=== PATIENT | female | born 1940 | race Caucasian/White ===

== ENCOUNTER → 2017-01-19 | Outpatient (REF) | payer MEDICARE, MEDICAID ==
[2017-01-19 15:55] LABS: ALBUMIN/GLOBULIN RATIO 1.25 (1.00-1.93); ALKALINE PHOSPHATASE 139 U/L (45-117); ALT/SGPT 19 U/L (12-78); ANION GAP 10 MEQ/L (8-16); AST/SGOT 16 U/L (15-37); BILIRUBIN,TOTAL 0.5 MG/DL (0.2-1.0); BLOOD UREA NITROGEN 14 MG/DL (7-18); CARBON DIOXIDE LEVEL 30 MEQ/L (21-32); CHLORIDE LEVEL 89 MEQ/L (98-107); CHOLESTEROL LEVEL 170 MG/DL (<200); CREATININE FOR GFR 0.83 MG/DL (0.55-1.02); GLOMERULAR FILTRATION RATE > 60.0 (>39); GLUCOSE, FASTING 98 MG/DL (83-110); POTASSIUM SERUM 4.4 MEQ/L (3.5-5.1); SODIUM LEVEL 129 MEQ/L (136-145); TOTAL PROTEIN 7.2 GM/DL (6.4-8.2); TRIGLYCERIDES LEVEL 131 MG/DL (<150)
== END ==
LOC: M SFHCLACO 08:04
PROVIDERS: ATTEND Physician Assistant
DX: I10 Essential (primary) hypertension (principal); E78.2 Mixed hyperlipidemia

== ENCOUNTER → 2017-08-10 | Outpatient (REF) | payer MEDICARE, MEDICAID | LOC: M SFHCLACO 09:01 | DX: I10 Essential (primary) hypertension (principal); E78.2 Mixed hyperlipidemia; Z53.8 Procedure and treatment not carried out for other reasons ==

== ENCOUNTER → 2018-02-10 | Outpatient (REF) | payer MEDICARE, MEDICAID ==
[2018-02-10 15:08] LABS: ALBUMIN 3.7 GM/DL (3.2-5.2); ALBUMIN/GLOBULIN RATIO 1.09 (1.00-1.93); ALKALINE PHOSPHATASE 163 U/L (45-117); ALT/SGPT 26 U/L (12-78); ANION GAP 10 MEQ/L (8-16); AST/SGOT 25 U/L (7-37); BILIRUBIN,TOTAL 0.4 MG/DL (0.2-1.0); BLOOD UREA NITROGEN 10 MG/DL (7-18); CALCIUM LEVEL 8.8 MG/DL (8.8-10.2); CARBON DIOXIDE LEVEL 31 MEQ/L (21-32); CHLORIDE LEVEL 92 MEQ/L (98-107); CHOLESTEROL LEVEL 152 MG/DL (<200); CHOLESTEROL RISK RATIO 2.338 (<5); CREATININE FOR GFR 0.86 MG/DL (0.55-1.30); GLOMERULAR FILTRATION RATE > 60.0 (>39); GLUCOSE, FASTING 94 MG/DL (70-100); HDL CHOLESTEROL 65 MG/DL (>40); LDL CHOLESTEROL 64.2 MG/DL (<100); NON-HDL-C 87 MG/DL; POTASSIUM SERUM 4.3 MEQ/L (3.5-5.1); SODIUM LEVEL 133 MEQ/L (136-145); TOTAL PROTEIN 7.1 GM/DL (6.4-8.2); TRIGLYCERIDES LEVEL 114 MG/DL (<150)
== END ==
LOC: M SFHCLACO 08:00
DX: E78.2 Mixed hyperlipidemia (principal); I10 Essential (primary) hypertension
CPT/HCPCS: 80053

== ENCOUNTER 2019-07-30 06:38 | Inpatient (IN) | payer MEDICARE, MEDICAID ==
[~2019-07-30] VITALS: Ht 157.5 cm; Wt 57.7 kg
[2019-07-30] VITALS (105 sets, daily range): BP systolic 47–146; BP diastolic 22–79
[2019-07-30] MEDS ORDERED: SIMV40TA20 PO (07:02)
[2019-07-30] MEDS ORDERED: ZETI10TA16 PO (07:02)
[2019-07-30] MEDS ORDERED: CART300C PO (07:02)
[2019-07-30] MEDS ORDERED: CALCTAB89 PO (07:02)
[2019-07-30] MEDS ORDERED: METO1TAB32 PO (07:02)
[2019-07-30] MEDS ORDERED: ASPI81TA85 PO (07:02)
[2019-07-30] MEDS ORDERED: ENAL20TA PO (07:02)
[2019-07-30] MEDS ORDERED: HYDR25TAB PO (07:02)
[2019-07-30] MEDS ORDERED: NS 1,000 ML IV ONE (07:15)
[2019-07-30 07:41] LABS: HEMATOCRIT 51.6 % (36.0-47.0); HEMOGLOBIN 16.8 g/dl (12.0-15.5); MEAN CORPUSCULAR HEMOGLOBIN 29.3 pg (27.0-33.0); MEAN CORPUSCULAR HGB CONC 32.6 g/dl (32.0-36.5); MEAN CORPUSCULAR VOLUME 89.9 fl (80.0-96.0); PLATELET COUNT, AUTOMATED 238 10^3/uL (150-450); RED BLOOD COUNT 5.74 10^6/uL (4.00-5.40); WHITE BLOOD COUNT 17.8 10^3/uL (4.0-10.0)
[2019-07-30 08:01] LABS: LYMPHOCYTES 9 % (16-44); MONOCYTES 5 % (0-5); NEUTROPHILS 86 % (28-66); PLATELET ESTIMATE NORMAL (NORMAL)
[2019-07-30 08:02] LABS: TOXIC VACUOLATION 1+
[2019-07-30 08:04] LABS: CRENATED RBC 1+
[2019-07-30 08:13] LABS: BILIRUBIN, URINE MANUAL 1+ (NEGATIVE); KETONE, URINE MANUAL NEGATIVE (NEGATIVE); UROBILINOGEN, URINE MANUAL NORMAL (NORMAL)
[2019-07-30 08:14] LABS: GLUCOSE, URINE (UA) MANUAL NEGATIVE (NEGATIVE)
[2019-07-30 08:26] LABS: CALCIUM LEVEL 8.4 MG/DL (8.8-10.2); CK-MB VALUE MASS 11.3 NG/ML (<3.6); CREATININE FOR GFR 2.96 MG/DL (0.55-1.30); GLOMERULAR FILTRATION RATE 16.2 (>32); MB/CK RELATIVE INDEX 2.29 (< OR =4); TROPONIN I 0.03 NG/ML (< 0.10)
[2019-07-30 08:38] LABS: BACTERIA, URINE LARGE AMOUNT; SQUAMOUS EPITHELIAL CELL URINE NONE SEEN /hpf (SMALL AMT); TRANSITIONAL EPI CELLS, URINE SMALL AMOUNT /hpf
[2019-07-30 08:39] LABS: AMORPHOUS SEDIMENT, URINE SMALL AMOUNT (NEGATIVE); HYALINE CAST, URINE NONE SEEN /lpf (0-1)
[2019-07-30] MEDS ORDERED: CEFEPIME HCL 2 GM in D5W MINI-BAG PLUS 50 ML IV ONE (08:45)
[2019-07-30] MEDS ORDERED: NS 1,730 ML in IV 1 EA IV ONE (08:45)
[2019-07-30 08:50] LABS: VENOUS BASE EXCESS -14.3 (-2.0-2.0); VENOUS HCO3 12.4 MEQ/L (23.0-27.0); VENOUS O2 SATURATION 90.4 % (60.0-80.0); VENOUS PARTIAL PRESSURE CO2 32.2 mmHg (38.0-50.0); VENOUS PARTIAL PRESSURE O2 66.4 mmHg (30.0-50.0); VENOUS PH 7.203 UNITS (7.330-7.430); VENOUS STANDARD HCO3 13.7 MEQ/L; VENOUS TOTAL CO2 13.4 MEQ/L (24.0-28.0)
[2019-07-30] MEDS ORDERED: ARIC1TAB PO (08:55)
[2019-07-30] MEDS ORDERED: DONEPEZIL 5 MG TAB PO SCH (09:00)
[2019-07-30] MEDS ORDERED: LIDOCAINE 5% (LIDODERM) PATCH TD SCH (09:00)
[2019-07-30] MEDS ORDERED: ASPIRIN 81 MG ENTERIC TAB PO SCH (09:00)
[2019-07-30] MEDS ORDERED: PANTOPRAZOLE 40MG INJ (PROTONIX) (C9113) IV SCH (09:00)
[2019-07-30 09:06] LABS: C REACTIVE PROTEIN QUANTITATIV 15.1 MG/DL (0.00-0.30)
[2019-07-30 09:12] LABS: INFLUENZA A AMPLIFICATION NEGATIVE (NEGATIVE); INFLUENZA B AMPLIFICATION NEGATIVE (NEGATIVE)
[2019-07-30 09:18] LABS: INR 1.17; PROTHROMBIN TIME 14.6 SECONDS (11.8-14.0)
[2019-07-30 09:19] LABS: PARTIAL THROMBOPLASTIN TIME 30.4 SECONDS (25.0-38.4)
[2019-07-30] MEDS ORDERED: ONDANSETRON 4MG/2ML VIAL (J2405) IV PRN (11:15)
[2019-07-30] MEDS ORDERED: MORPHINE 2 MG/ML 1ML VIAL (J2270) IV PRN (11:15)
[2019-07-30] MEDS ORDERED: NS 1,000 ML IV SCH (12:00)
[2019-07-30] MEDS ORDERED: PHENYLEPHRINE INJ 10MG/ML VIAL (J2370) As Ordered ONE (12:22)
[2019-07-30] MEDS ORDERED: NOREPINEPHRINE 4 MG/4 ML AMP As Ordered ONE (12:35)
[2019-07-30] MEDS ORDERED: metroNIDAZOLE 500 MG in IV 1 EA IV SCH (13:00)
--- NOTE | 2019-07-30 13:12 | REP ---
REASON: Hypotension. COMPARISON: Frontal views obtained as part of abdominal series 07/12/2015, 06/17/2010. The technique utilized in obtaining the radiograph has magnified the cardiac silhouette and accentuated the interstitial markings. The cardiac silhouette is magnified by technique. Mild cardiomegaly can not be ruled out. There is evidence of mild diffuse interstitial fibrotic change increased from the prior exams. No definite patchy opacities or pleural effusions have developed. There is no change in the osseous structures. Note is again made of a hiatal hernia. IMPRESSION:Chronic changes as described above. Electronically Signed by Vladimir Donnelly DO 07/30/2019 02:08 P
--- NOTE | 2019-07-30 13:49 | HPEPDOC ---
General Date of Admission Jul 30, 2019 at 11:04 Date of Service: Jul 30, 2019 Chief Complaint The patient is a 79-year-old female admitted with a reason for visit of Sepsis. Source: Patient, Family Exam Limitations: Clinical conditions History of Present Illness 79 year old female with PMH of hypertension, hyperlipidemia, dementia came to the ED for 1 day history of abdominal pain ,vomiting and diarrhea and extreme weakness and lethargy this morning. On arrival to the ED her BP was 69/39 and she was lethargic. She was found to have a dirty UA and abdominal ct suggestive of colitis. Her lactate was elevated to 10. She received cefepime, fluid loading as per sepsis protocol after that she became more communicative and was talking. On my interview she complained of abdominal pain all over, in cramps and when pressing down , 9/10 in intensity in all quadrants. She also complained of low back pain which was sharp and so she could not lay on her back and was laying down on her side. With fluids bp initially improved to 90/50 but then BP dropped again and patient was started on vasopressors. Patient was admitted for septic shock due to UTI and enterocolitis. Home Medications Scheduled Aspirin (Aspir 81) 81 Mg Tablet.dr, 81 MG PO DAILY, (Reported) Calcium Carbonate (Calcium) 600 Mg Tablet, 600 MG PO DAILY, (Reported) Diltiazem HCl (Cartia Xt) 300 Mg Cap.er.24h, 300 MG PO DAILY, (Reported) Donepezil HCl (Aricept) 5 Mg Tablet, 5 MG PO DAILY, (Reported) Enalapril Maleate (Enalapril Maleate) 20 Mg Tablet, 20 MG PO DAILY, (Reported) Ezetimibe (Zetia) 10 Mg Tablet, 10 MG PO DAILY, (Reported) Hydrochlorothiazide (Hydrochlorothiazide) 25 Mg Tablet, 25 MG PO DAILY, (Reported) Metoprolol Succinate (Metoprolol Succinate) 25 Mg Tab.er.24h, 25 MG PO DAILY, (Reported) Simvastatin (Simvastatin) 40 Mg Tablet, 40 MG PO QHS, (Reported) Allergies Coded Allergies: No Known Allergies (Unverified , 07/30/19) Past Medical History Medical History hypertension, hyperlipidemia, dementia Surgical History nasal skin surgery removal of cancer Family History Significant Family History: Heart disease (father and mother) Social History * Smoker: Denies Alcohol: Denies Drugs: denies A-FIB/CHADSVASC A-FIB History Current/History of A-Fib/PAF?: No Review of Systems Constitutional: Reports: Weakness, Lethargy Eyes: Denies: Pain, Vision change ENT: Denies: Head Aches, Ear Pain, Dysphagia Skin: Denies: Rash, Lesions, Breakdown Pulmonary: Denies: Dyspnea, Cough Cardiovascular: Denies: Chest Pain, Palpitations, Orthopnea, Paroxysmal Noc. Dyspnea, Lt Headedness Gastrointestinal: Reports: Nausea, Vomiting, Abdominal Pain, Diarrhea Genitourinary: Denies: Dysuria, Frequency, Incontinence, Retention Musculoskeletal: Reports: Back Pain Neurological: Reports: Numbness (left leg) Psych: Reports: Memory Issues Physical Examination General Exam: Positive: Alert, Cooperative, Other (confused, rambling) Eye Exam: Positive: PERRLA, Conjunctiva & lids normal, EOMI; Negative: Sclera icteric ENT Exam: Positive: Atraumatic, Mucous membr. moist/pink, Pharynx Normal Neck Exam: Positive: Supple; Negative: JVD, thyromegaly Chest Exam: Positive: Clear to auscultation, Normal air movement Heart Exam: Positive: Rate Normal, Regular Rhythm, Normal S1, Normal S2; Negative: Murmurs, Rubs Telemetry: Positive: No significant arrhythmia Abdomen Exam: Positive: BS Hypoactive (almost absent), Soft, Tenderness (in all the qudrants,), Other (No guarding or rigidity) Extremity Exam: Negative: Clubbing, Cyanosis, Edema Skin Exam: Positive: Nl turgor and temperature; Negative: Breakdown, Lesion Vital Signs Vital Signs Date Time Temp Pulse Resp B/P (MAP) Pulse Ox O2 Delivery O2 Flow Rate FiO2 07/30/19 11:34 20 90 Nasal Cannula 07/30/19 11:27 97 2.0 07/30/19 10:42 96/52 (67) 07/30/19 08:41 96.9 Laboratory Data Labs 24H Laboratory Tests 2 07/30/19 07:28: Nucleated Red Blood Cells % (auto) 0.0, Neutrophils 86H, Lymphocytes (Manual) 9L, Monocytes (Manual) 5, Crenated Cell 1+, Toxic Vacuolation 1+, Platelet Estimate NORMAL, Anion Gap 21H, Glomerular Filtration Rate 16.2L, Lactic Acid Level 10.1*H, Calcium Level 8.4L, Total Creatine Kinase 494H, Creatine Kinase MB 11.3H, Creatine Kinase MB Relative Index 2.29, Troponin I 0.03 07/30/19 08:00: Urine Color ([place]) YELLOW, Urine Appearance ([place]) CLOUDYH, Urine pH ([place]) 5.0, Urine Specific [place] ([place]) 1.020, Bedside Urine Glucose (UA) NEGATIVE, Bedside Urine Ketones (LAB) NEGATIVE, Bedside Urine Blood POSITIVEH, Bedside Urine Nitrite (LAB) NEGATIVE, Bedside Urine Bilirubin (LAB) 1+H, Bedside Urine Urobilinogen (LAB) NORMAL, Bedside Urine Leukocyte Esterase (L POSITIVEH, Urine Sediment Examination PERFORMED, Urine RBC 1-3, Urine WBC TNTCH, Urine Squamous Epithelial Cells NONE SEEN, Urine Transitional Epithelial Cells SMALL AMOUNTH, Urine Amorphous Sediment SMALL AMOUNTH, Urine Bacteria LARGE AMOUNTH, Urine Hyaline Casts NONE SEEN 07/30/19 08:30: Prothrombin Time 14.6H, Prothromb Time International Ratio 1.17, Activated Partial Thromboplast Time 30.4, Blood Gas Bicarbonate Standard 13.7, Venous Blood pH 7.203L, Venous Blood Partial Pressure CO2 32.2L, Venous Blood Partial Pressure O2 66.4H, Venous Blood Total Carbon Dioxide 13.4L, Venous Blood HCO3 12.4L, Venous Blood Oxygen Saturation 90.4H, Venous Blood Base Excess -14.3L, C- Reactive Protein, Quantitative 15.10H, Amylase Level 114 07/30/19 08:36: Influenza Type A (RT-PCR) NEGATIVE, Influenza Type B (RT-PCR) NEGATIVE CBC/BMP Laboratory Tests 07/30/19 07:28 Microbiology Microbiology 07/30/19 Urine Culture, Received Pending 07/30/19 Blood Culture, Received Pending 07/30/19 Blood Culture, Received Pending Assessment/Plan 79 year old female with PMH of hypertension, hyperlipidemia, dementia came to the ED for 1 day history of abdominal pain ,vomiting and diarrhea and extreme weakness and lethargy this morning. On arrival to the ED her BP was 69/39 and she was lethargic. She was found to have a dirty UA and abdominal ct suggestive of colitis. Her lactate was elevated to 10. She received cefepime, fluid loading as per sepsis protocol after that she became more communicative and was talking. On my interview she complained of abdominal pain all over, in cramps and when pressing down , 9/10 in intensity in all quadrants. She also complained of low back pain which was sharp and so she could not lay on her back and was laying down on her side. With fluids BP initially improved to 90/50 but then BP dropped again and patient was started on vasopressors. Patient was admitted for septic shock due to UTI and enterocolitis. Septic Shock probably due to intra abdominal pathology will start on levophed got 3.5 L of fluid bolus. 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 Lactic acidosis due to hpotension, shock , intraabdominal causes ischemic colitis will get 4 hour follow up consult surgery repeat ABG Metabolic acedemia due to JUDITH and lactic acidosis. JUDITH Prerenal Vs ATN due to diarrhea, GI losses, shock on the back ground of being on ACEI , DIuretics Unknown recent baseline. Back pain will give lidoderm patch and heating pad. Dementia on donepezil. Hiatal hernia will give PPI CODE status: DNR/ DNI Discussed with patient and Pateint's sister corroborated it. She does not want to be on a ventilator and does not want to be resuscitated if her heart stops. She wants to pass naturally when its her time. She is ok with medications to treat her blood pressure and big IV lines in the neck or groin. Plan / VTE VTE Prophylaxis Ordered?: Yes HANY BARRERA MD Jul 30, 2019 12:52
[2019-07-30] MEDS ORDERED: NOREPINEPHRINE BITARTRATE 16 MG in D5W 484 ML IV SCH ×2 (14:00→14:57)
[2019-07-30] MEDS ORDERED: VASOPRESSIN INJ 20 UNITS in NS 499 ML IV SCH (15:00)
[2019-07-30] MEDS ORDERED: VASOPRESSIN INJ 20 UNITS/ML VIAL As Ordered ONE (15:00)
[2019-07-30] MEDS ORDERED: VASOPRESSIN INJ 20 UNITS in NS 500 ML IV SCH (15:00)
[2019-07-30 15:22] LABS: ABG HCO3 6.3 MEQ/L (22.0-26.0); ABG TOTAL CO2 7.6 MEQ/L (23.0-31.0)
[2019-07-30 15:24] LABS: ABG BASE EXCESS -27.6 (-2.0-2.0); ABG O2 SATURATION 96.1 % (95.0-99.0); ABG PARTIAL PRESSURE CO2 40.1 mmHg (35.0-45.0); ABG PARTIAL PRESSURE O2 120.1 mmHg (75.0-100.0); ABG STANDARD HCO3 5.8 MEQ/L (22.0-26.0); ABG pH (ARTERIAL) 6.817 UNITS (7.350-7.450)
[2019-07-30] MEDS ORDERED: EPINEPHrine HCL INJ 1 MG in D5W 240 ML IV SCH (15:37)
[2019-07-30 15:39] LABS: ALBUMIN 2.8 GM/DL (3.2-5.2); BILIRUBIN,DIRECT 0.3 MG/DL (0.0-0.2); BILIRUBIN,TOTAL 0.5 MG/DL (0.2-1.0); TOTAL PROTEIN 6.1 GM/DL (6.4-8.2)
[2019-07-30] MEDS ORDERED: SODIUM BICARBONATE 8.4% INJ 50 ML SYRINGE As Ordered ONE (15:43)
[2019-07-30 15:47] LABS: HEMATOCRIT 39.4 % (36.0-47.0); MEAN CORPUSCULAR HEMOGLOBIN 29.6 pg (27.0-33.0); MEAN CORPUSCULAR HGB CONC 30.2 g/dl (32.0-36.5); PLATELET COUNT, AUTOMATED 194 10^3/uL (150-450); RED BLOOD COUNT 4.02 10^6/uL (4.00-5.40); WHITE BLOOD COUNT 11.7 10^3/uL (4.0-10.0)
[2019-07-30 15:50] LABS: HEMOGLOBIN 11.9 g/dl (12.0-15.5)
[2019-07-30 15:58] LABS: EOSINOPHILS 1 % (0-3); NEUTROPHILS 69 % (28-66)
[2019-07-30 16:00] LABS: BASOPHILS 1 % (0-1); LYMPHOCYTES 19 % (16-44); MONOCYTES 4 % (0-5)
[2019-07-30] MEDS ORDERED: SODIUM BICARBONATE 8.4% INJ 50 ML SYRINGE IV ONE (16:00)
[2019-07-30 16:01] LABS: PLATELET ESTIMATE NORMAL (NORMAL); POIKILOCYTOSIS 1+; POLYCHROMASIA 1+; TOXIC VACUOLATION 1+
[2019-07-30 16:03] LABS: CRENATED RBC 1+
[2019-07-30] MEDS ORDERED: SODIUM BICARBONATE 8.4% INJ 50 ML SYRINGE IV STA (16:19)
[2019-07-30 16:59] LABS: ALBUMIN 1.8 GM/DL (3.2-5.2); BILIRUBIN,TOTAL 0.5 MG/DL (0.2-1.0); CK-MB VALUE MASS 112.3 NG/ML (<3.6); CREATININE FOR GFR 2.75 MG/DL (0.55-1.30); GLOMERULAR FILTRATION RATE 17.6 (>32); MB/CK RELATIVE INDEX 2.55 (< OR =4); PHOSPHORUS LEVEL 9.2 MG/DL (2.5-4.9); POTASSIUM SERUM 5.5 MEQ/L (3.5-5.1); TOTAL PROTEIN 4.1 GM/DL (6.4-8.2); TROPONIN I 0.14 NG/ML (< 0.10)
[2019-07-30] MEDS ORDERED: DEXTROSE 50% 50 ML SYRINGE As Ordered ONE (16:59)
[2019-07-30] MEDS ORDERED: SODIUM BICARBONATE 150 MEQ in D5W 1,000 ML IV SCH (17:00)
[2019-07-30] MEDS ORDERED: DEXTROSE 50% 50 ML SYRINGE IV STA (17:04)
[2019-07-30] MEDS ORDERED: DEXTROSE 50% 50 ML SYRINGE IV PRN (17:15)
[2019-07-30] MEDS ORDERED: GLUCOSE 4 GM CHEW TABLET PO PRN (17:15)
[2019-07-30] MEDS ORDERED: GLUCAGON FOR INJ 1 MG VIAL (J1610) SC PRN (17:15)
--- NOTE | 2019-07-30 18:03 | CR.PDOC ---
General Surgery Consultation Date of Consultation 07/30/19 History and Physical CONSULT REPORT FOR: Pallavi Rizvi MD REASON FOR CONSULTATION: sepsis concern for ischemic bowel HISTORY OF PRESENT ILLNESS: I was urgently asked to consult on Ms. Bell who is an 79-year-old female admitted this morning with complaints of abdominal pain, diarrhea and to be septic and continued to deteriorate. At the time that I was called he is maxed on 2 pressors. She also has been noted to increase her lactic acid. PAST MEDICAL HISTORY: 1. . PAST SURGICAL HISTORY: INCLUDES: 1. . PREVIOUS ANESTHESIA REACTIONS: ALLERGIES: Please see below. FAMILY HISTORY: . HOME MEDICATIONS: Please see below. REVIEW OF SYSTEMS: GENERAL: [Denies chills, reports weight gain, reports feeling febrile yesterday]. HEENT: [Denies blurred vision and double vision. Denies ear symptoms. Denies hoarseness]. NECK: Denies any neck pain]. CARDIOVASCULAR: [Denies chest pain and palpitations]. MUSCULOSKELETAL: [Denies arthralgias, back pain and thrombophlebitis]. SKIN: [Denies rash]. NEUROLOGIC: [Denies headache, stroke and transient ischemic attack]. PSYCHIATRIC: [Denies anxiety and depression]. ENDOCRINE: [Denies thyroid disease]. HEMATOLOGY/ONCOLOGY: [Denies bleeding or clotting disorder]. HEART: [Denies any chest pains, palpitations, paroxysmal dyspnea, orthopnea]. PULMONARY: [Denies chronic cough, dyspnea and wheezing]. GASTROINTESTINAL: [Denies rectal bleeding, family history of colon cancer, constipation, diarrhea, dysphagia, heartburn and jaundice]. GENITOURINARY: [Denies dysuria, frequency, hematuria and nocturia]. ENDOCRINE: [Denies polydipsia, polyphagia, polyuria, heat or cold intolerance]. INFECTIOUS: [Denies any recent upper respiratory tract infection, UTI, need for use of antibiotics]. NUTRITION: [Reports good appetite]. PHYSICAL EXAMINATION: VITALS SIGNS: Please see below. GENERAL APPEARANCE:[Patient seen, laying in bed, awake, alert, and oriented. Comfortable, in no acute distress]. SKIN: [Warm and moist]. HEENT: [Normocephalic, atraumatic. [place]ma palpebral conjunctiva, anicteric sclerae. Lips and mucosa appear moist]. NECK: [Supple, no thyromegaly. No obvious jugular venous distention]. LUNGS: [Clear to auscultation bilaterally. No wheezing appreciated]. HEART: [No chest wall abnormalities. Regular rate and rhythm with no murmurs appreciated]. ABDOMEN: Abdomen is , soft, . [No hepatosplenomegaly. No umbilical or groin h erniations, nondistended. No noticeable rebound or guarding. No grimacing with palpation. No rebound tenderness. No masses appreciated]. EXTREMITIES: [Extremities have no deformities. No edema identified] ANCILLARIES: . LABORATORY DATA: Please see below. IMAGING STUDIES: . IMPRESSION AND PLAN: Sepsis most likely from infarcted/ischemic bowel I eexamined the patient at the bedside and discussed her case with Dr. Rizvi and Dr. Hall. All of us are in agreement that her prognosis is grave. I spoke to her sister on the phone about her situation and I explained to her our suspicion of ischemic bowel and that she most likely will pass away with or without intervention at this stage but I am willing to bring her to the OR as this I believe will be her only chance to survive. When I asked her what she thinks her wishes are if she is able to make a decision for herself, she believes that she would not want to have surgery. Thus we have held off on surgery. She is on her way to see her sister when patient decompensated and . Vital Signs Vital Signs Date Time Temp Pulse Resp B/P (MAP) Pulse Ox O2 Delivery O2 Flow Rate FiO2 07/30/19 14:30 94 113/36 Nasal Cannula 2.0 07/30/19 13:40 24 94 07/30/19 12:00 97.3 Laboratory Data Labs 24H Laboratory Tests 2 07/30/19 07:28: Nucleated Red Blood Cells % (auto) 0.0, Neutrophils 86H, Lymphocytes (Manual) 9L, Monocytes (Manual) 5, Crenated Cell 1+, Toxic Vacuolation 1+, Platelet Estimate NORMAL, Anion Gap 21H, Glomerular Filtration Rate 16.2L, Lactic Acid Level 10.1*H, Calcium Level 8.4L, Total Bilirubin 0.5, Direct Bilirubin 0.3H, Aspartate Amino Transf (AST/SGOT) 82H, Alanine Aminotransferase (ALT/SGPT) 40, Alkaline Phosphatase 136H, Total Creatine Kinase 494H, Creatine Kinase MB 11.3H, Creatine Kinase MB Relative Index 2.29, Troponin I 0.03, Total Protein 6.1L, Albumin 2.8L, Albumin/Globulin Ratio 0.85L 07/30/19 08:00: Urine Color ([place]) YELLOW, Urine Appearance ([place]) CLOUDYH, Urine pH ([place]) 5.0, Urine Specific [place] ([place]) 1.020, Bedside Urine Glucose (UA) NEGATIVE, Bedside Urine Ketones (LAB) NEGATIVE, Bedside Urine Blood POSITIVEH, Bedside Urine Nitrite (LAB) NEGATIVE, Bedside Urine Bilirubin (LAB) 1+H, Bedside Urine Urobilinogen (LAB) NORMAL, Bedside Urine Leukocyte Esterase (L POSITIVEH, Urine Sediment Examination PERFORMED, Urine RBC 1-3, Urine WBC TNTCH, Urine Squamous Epithelial Cells NONE SEEN, Urine Transitional Epithelial Cells SMALL AMOUNTH, Urine Amorphous Sediment SMALL AMOUNTH, Urine Bacteria LARGE AMOUNTH, Urine Hyaline Casts NONE SEEN 07/30/19 08:30: Prothrombin Time 14.6H, Prothromb Time International Ratio 1.17, Activated Partial Thromboplast Time 30.4, Blood Gas Bicarbonate Standard 13.7, Venous Blood pH 7.203L, Venous Blood Partial Pressure CO2 32.2L, Venous Blood Partial Pressure O2 66.4H, Venous Blood Total Carbon Dioxide 13.4L, Venous Blood HCO3 12.4L, Venous Blood Oxygen Saturation 90.4H, Venous Blood Base Excess -14.3L, C- Reactive Protein, Quantitative 15.10H, Amylase Level 114 07/30/19 08:36: Influenza Type A (RT-PCR) NEGATIVE, Influenza Type B (RT-PCR) NEGATIVE 07/30/19 13:45: Lactic Acid Followup at 4 Hours 14.1*H 07/30/19 15:10: Blood Gas Bicarbonate Standard 5.8L, Arterial Blood pH 6.817*L, Arterial Blood Partial Pressure CO2 40.1, Arterial Blood Partial Pressure O2 120.1H, Arterial Blood Total CO2 7.6L, Arterial Blood HCO3 6.3L, Arterial Blood Base Excess - 27.6L, Arterial Blood Oxygen Saturation 96.1 07/30/19 15:25: Nucleated Red Blood Cells % (auto) 0.0, Neutrophils 69H, Band Neutrophils 6, Lymphocytes (Manual) 19, Monocytes (Manual) 4, Eosinophils (Manual) 1, Basophils (Manual) 1, Polychromasia 1+, Poikilocytosis 1+, Crenated Cell 1+, Toxic Vacuolation 1+, Platelet Estimate NORMAL, Anion Gap 21H, Glomerular Filtration Rate 17.6L, Calcium Level 7.0#L, Phosphorus Level 9.2H, Total Bilirubin 0.5, Aspartate Amino Transf (AST/SGOT) 1657H, Alanine Aminotransferase (ALT/SGPT) 1128H, Alkaline Phosphatase 124H, Total Creatine Kinase 4411#H, Creatine Kinase MB 112.3H, Creatine Kinase MB Relative Index 2.55, Troponin I 0.14#H, Total Protein 4.1#L, Albumin 1.8#L, Albumin/Globulin Ratio 0.78L 07/30/19 17:37: Bedside Glucose (Misc Panel) 189H CBC/BMP Laboratory Tests 07/30/19 07:28 07/30/19 15:25 Microbiology Microbiology 07/30/19 Urine Culture, Received Pending 07/30/19 Blood Culture, Received Pending 07/30/19 Blood Culture, Received Pending Home Medications Scheduled Aspirin (Aspir 81) 81 Mg Tablet.dr, 81 MG PO DAILY, (Reported) Calcium Carbonate (Calcium) 600 Mg Tablet, 600 MG PO DAILY, (Reported) Diltiazem HCl (Cartia Xt) 300 Mg Cap.er.24h, 300 MG PO DAILY, (Reported) Donepezil HCl (Aricept) 5 Mg Tablet, 5 MG PO DAILY, (Reported) Enalapril Maleate (Enalapril Maleate) 20 Mg Tablet, 20 MG PO DAILY, (Reported) Ezetimibe (Zetia) 10 Mg Tablet, 10 MG PO DAILY, (Reported) Hydrochlorothiazide (Hydrochlorothiazide) 25 Mg Tablet, 25 MG PO DAILY, (Reported) Metoprolol Succinate (Metoprolol Succinate) 25 Mg Tab.er.24h, 25 MG PO DAILY, (Reported) Simvastatin (Simvastatin) 40 Mg Tablet, 40 MG PO QHS, (Reported) Allergies Coded Allergies: No Known Allergies (Unverified , 07/30/19) ERIC CALDWELL MD Jul 30, 2019 18:03
--- NOTE | 2019-07-30 19:26 | ECGEPIP ---
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
[2019-07-30] MEDS ORDERED: HEPARIN SOD (PORCINE) 5000 UNITS/ML VIAL SC SCH (21:00)
[2019-07-30] MEDS ORDERED: CEFEPIME HCL 1 GM in D5W MINI-BAG PLUS 50 ML IV SCH (21:00)
[2019-07-30] MEDS ORDERED: **NOTE PATIENT COMMENT** MISC XX SCH (21:00)
[2019-07-30] MEDS ORDERED: CEFEPIME HCL 2 GM in D5W 50 ML IV SCH (21:00)
--- NOTE | 2019-07-31 07:20 | REP ---
REASON FOR EXAM: Acute renal failure. Latest prior for comparison is 07/12/2015 a contrast-enhanced exam. The lack of intravenous contrast and the lack of oral bowel preparatory contrast decreases the sensitivity of the exam. There are chronic changes seen in the lung bases, status quo. There is a large hiatal hernia increased in size from the prior exam. The gallbladder is enlarged and there is cholelithiasis. Limited evaluation of the liver and spleen show no gross abnormalities. Limited evaluation of the pancreas and adrenal glands show no gross abnormalities. There is unchanged bilateral adrenal gland thickening. Limited evaluation of the abdominal aorta and para-aortic regions show no significant changes. Heavy calcific atherosclerotic change is seen in the abdominal aorta and common iliac arteries status quo. There are no nephroliths or ureteroliths. Aside from the differences in technique, there does not appear to be a significant change in the appearance of the kidneys. There is no evidence of free intraperitoneal air. Limited evaluation of the bowel loops and their mesenteries shows no gross abnormalities, however, I will re-iterate that they are seen in a markedly limited fashion. CT PELVIS: There is a Edward balloon in the urinary bladder decompressing it. No free fluid or free air is seen in the pelvis. The bowel loops are seen in a limited fashion but there is no evidence of a gross abnormality. There are no gross pelvic masses. Bone window technique throughout the exam shows chronic spinal, hip, and sacroiliac joint degenerative changes. The bones are demineralized. IMPRESSION: 1. There is cholelithiasis. 2. There is a large hiatal hernia. 3. Marked exam limitations and other findings as described above. Acute bowel pathology secondary to conditions such as diffuse enterocolitis cannot be ruled out by this exam. Electronically Signed by Vladimir Donnelly DO 08/04/2019 04:12 P
[2019-07-31] MEDS ORDERED: cefTRIAXone SOD 1 GM in D5W MINI-BAG PLUS 50 ML IV SCH (08:00)
--- NOTE | 2019-07-31 08:27 | ECGEPIP ---
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
--- NOTE | 2019-08-01 11:47 | CR ---
DATE OF CONSULTATION: 07/30/2019 NOTE: I was asked by Dr. Rizvi to emergently evaluate Ms. Tapia for profound hypotension. HISTORY OF PRESENT ILLNESS: Ms. Tapia is an 79-year-old white female who presented to the emergency department earlier today with a one day history of abdominal pain, emesis and diarrhea. She had weakness and was lethargic this morning. On arrival to the emergency department her blood pressure was 69/39. She had a urinalysis that was positive for urinary tract infection. She also had an abdominal CT scan done that was suggestive of colitis. Per reading the reports on presentation, she had abdominal pain all over, 9/10 discomfort in all quadrants. She also complained of lower back pain. She was given IV fluids in the emergency department and started on vasopressor. She was also given cefepime. I originally met Ms. Tapia earlier today when I was asked to put in a central line for her vasopressors. I was then asked to see her later in the day as a retirement consultant. When I was putting in the line, she was answering questions and complaining of lower back pain which she stated was chronic. When I went in as a retirement consultant she was not responsive. No other history is known. ALLERGIES: No known drug allergies. MEDICATIONS: Her medications on admission were: - aspirin 81 mg p.o. q. day - calcium carbonate 600 mg p.o. q. day - diltiazem 300 mg p.o. q. day - Aricept 5 mg p.o. q. day - enalapril 20 mg p.o. q. day - Zetia 10 mg p.o. q. day - hydrochlorothiazide 25 mg p.o. day - metoprolol 25 mg p.o. day - simvastatin 40 mg p.o. q. day PAST MEDICAL HISTORY: 1. Hypertension. 2. Dyslipidemia. 3. Dementia. 4. Status post recent forehead skin surgery for removal of cancer. FAMILY HISTORY: Notable for heart disease in both her mother and father. SOCIAL HISTORY: She is reported to be a lifelong nonsmoker. She does not drink alcohol. No street drug usage. REVIEW OF SYSTEMS: Unobtainable secondary to decreased mental status. In reviewing the reports in [facility] positives include numbness in the left leg, and memory issues. PHYSICAL EXAMINATION: GENERAL: Ms. Tapia is lying in bed. She is making gurgling noises, does not respond to questions or sternal rub. She will grimace and moan with pain. VITAL SIGNS: Temperature 97.3 with a T-max of 97.5, pulse 94, blood pressure 143/44 with a MAP of 65 (on levo at 30 mcg and vasopressin), respiratory rate in the 20s, SPO2 94% on 2 liters by nasal cannula. HEENT: Anicteric, pupils 2-3 mm and reactive. Oropharynx: Clear, dry mucosa. NECK: Supple without JVD or thyromegaly. Trachea is midline. LYMPH: Without cervical or supraclavicular lymphadenopathy. CHEST: Normal shape. LUNGS: Symmetric excursion, good air entry, no wheeze, rhonchi or crackle on tidaled excursion. Normal I:E. No accessory muscle usage or retractions. CARDIOVASCULAR: Regular rate and rhythm with a normal S1-S2, no murmur, rub or gallop appreciated. ABDOMEN: I perhaps heard one bowel sounds, nondistended, soft, exquisitely tender in all quadrants, particularly the left lower quadrant. No hepatosplenomegaly appreciated. EXTREMITIES: Cool with prolonged capillary refill. No clubbing or cyanosis. No edema. Palpable pedal and femoral pulses. SKIN: Erythematous over most of her body with a pale right arm and a band that was clear across her abdomen. LABORATORY DATA: CBC from this morning showed a hemoglobin of 16.8, hematocrit of 51.6, platelet count 238,000, white blood cell count 17,800 with a differential of 86% neutrophils and 19% lymphocytes. Repeat this afternoon showed a hemoglobin 11.90, hematocrit 39.4, platelet count of 194,000, white blood cell count 11,700 with a differential of 69% neutrophils, 6% bands, 19% lymphocytes. Chemistries from this morning showed sodium 136, potassium 4.0, chloride 102, bicarbonate 13, anion gap 21, BUN 48, creatinine 3, glucose 99, calcium 8.4, total bilirubin 0.5, direct bilirubin 0.3, AST 82, ALT 40, alkaline phosphatase 136, CK 494, CK-MB 11.3, total protein 6.1, albumin 2.8. Lactic acid 10.1 with a reflex of 14.1, CRP 15.1. Amylase 114. Repeat chemistries obtain shows sodium 140, potassium 5.5, chloride 110, bicarbonate 90, anion gap 21, BUN 48, creatinine 2.8, glucose 20, calcium 7.0, phosphorus 9.2, AST 1657, ALT 1128, alkaline phosphatase 124, CK 4411, CK-MB 112.1, troponin-I 0.14, total protein 4.1, albumin 1.8. INR this morning was 1.17. Urine is described as cloudy with a pH of 5.0, specific gravity 1.02, negative glucose, negative ketones, positive blood, negative urine nitrate, 1+ bilirubin, positive leukocyte esterase, 1-3 RBCs, too numerous to count WBCs, large amount of bacteria. VBG done this morning was 7.2/32/66 with a base excess of -14.30. Arterial blood gas this afternoon was 6.82/40/120 with a measured saturation of 96% and a base excess of -27.6. I reviewed her chest x-ray as well as the report from earlier today. That x-ray showed normal to mildly enlarged cardiac silhouette. Normal appearing mediastinal and hilar regions. No acute infiltrates. Normal inflation. IMPRESSION: 1. Septic shock. While she has a UTI, I suspect that this is secondary to infarcted bowel given her significant acidemia and negative base excess. She also has a soft abdomen that is exquisitely tender. 2. Probable infarcted bowel. 3. Septic shock. 4. Shock liver. RECOMMENDATIONS: 1. I spoke with Dr. Rizvi and Dr. Bender. Unfortunately I feel that even if she had an exploratory laparotomy her chances of survival are minimal. 2. Pending the family decision I would continue as you are doing with vasopressors. I would add epinephrine next if one is needed. 3. Agree with starting bicarbonate drip. 4. Continue to monitor CVP. Her CVP previously was 11. 5. Dr. Bender spoke with the patient's sister who is her healthcare proxy and she is en route to the hospital. PROGNOSIS: Grave. CRITICAL CARE TIME: 45 minutes, not including procedure time.
--- NOTE | 2019-08-01 16:51 | DS.PDOC ---
Discharge Summary General Date of Admission Jul 30, 2019 at 11:04 Date of Discharge 07/30/19 Discharge Summary PROCEDURES PERFORMED DURING STAY: Femoral Central line Femoral Arterial line. DISCHARGE DIAGNOSES: Septic Shock Acute Bowel ischemia Oliguric Lito and ATN Shock liver Hyperkalemia Severe metabolic acidosis Dementia UTI COMPLICATIONS/CHIEF COMPLAINT: Sepsis. HISTORY OF PRESENT ILLNESS: See History and physical. HOSPITAL COURSE: 79 year old female with PMH of hypertension, hyperlipidemia, d ementia came to the ED for 1 day history of abdominal pain ,vomiting and diarrhea and extreme weakness and lethargy this morning. On arrival to the ED her BP was 69/39 and she was lethargic. She was found to have a dirty UA and abdominal ct suggestive of colitis. Her lactate was elevated to 10. She received cefepime, fluid loading as per sepsis protocol after that she became more communicative and was talking. On my interview she complained of abdominal pain all over, in cramps and when pressing down , 9/10 in intensity in all quadrants. She also complained of low back pain which was sharp and so she could not lay on her back and was laying down on her side. With fluids BP initially improved to 90/50 but then BP dropped again and patient was started on vasopressors. Metronidazole was added. Patient was admitted for septic shock, Acute renal failure and possibly ischemic colits, UTi. Patient had a central line and an arterial line placed. Fluid boluses were continued and give levophed and vasopressin. Student Ministries Director and general surgery was consulted soon after admission. Spoke with sister again on the phone and she again confirmed DNR and DNI status. Her follow up lactate came back higher to 14. Her blood gas shoed severe acidosis with a ph of 6.81 patient was give bicarb ivp and started on bicarb infusion. Repeat labs showed shock liver also. Surgeon talked to sister her next of kin regarding emergency surgery and eminent with or without surgery with surgery giving her a slim chance for survival. She did not want to proceed with surgery but said was coming to the hospital to discuss about it further.While we were waiting for the sister to come back to the hospital patient at 5:44 pm. DISPOSITION: 20 . TIME SPENT ON DISCHARGE: 35 minutes. Vital Signs/I&Os Vital Signs Date Time Temp Pulse Resp B/P (MAP) Pulse Ox O2 Delivery O2 Flow Rate FiO2 07/30/19 17:43 27 47/23 Nasal Cannula 2.0 07/30/19 17:40 12 07/30/19 17:38 88 07/30/19 12:00 97.3 I&O- Last 24 Hours up to 6 AM 07/31/19 06:00 Intake Total 2780 ml Output Total 100 ml Balance 2680 ml Laboratory Data Labs 24H Laboratory Tests 2 07/30/19 13:45: Lactic Acid Followup at 4 Hours 14.1*H 07/30/19 15:10: Blood Gas Bicarbonate Standard 5.8L, Arterial Blood pH 6.817*L, Arterial Blood Partial Pressure CO2 40.1, Arterial Blood Partial Pressure O2 120.1H, Arterial Blood Total CO2 7.6L, Arterial Blood HCO3 6.3L, Arterial Blood Base Excess - 27.6L, Arterial Blood Oxygen Saturation 96.1 07/30/19 15:25: Nucleated Red Blood Cells % (auto) 0.0, Neutrophils 69H, Band Neutrophils 6, Lymphocytes (Manual) 19, Monocytes (Manual) 4, Eosinophils (Manual) 1, Basophils (Manual) 1, Polychromasia 1+, Poikilocytosis 1+, Crenated Cell 1+, Toxic Vacuolation 1+, Platelet Estimate NORMAL, Anion Gap 21H, Glomerular Filtration Rate 17.6L, Calcium Level 7.0#L, Phosphorus Level 9.2H, Total Bilirubin 0.5, Aspartate Amino Transf (AST/SGOT) 1657H, Alanine Aminotransferase (ALT/SGPT) 1 128H, Alkaline Phosphatase 124H, Total Creatine Kinase 4411#H, Creatine Kinase MB 112.3H, Creatine Kinase MB Relative Index 2.55, Troponin I 0.14#H, Total Protein 4.1#L, Albumin 1.8#L, Albumin/Globulin Ratio 0.78L 07/30/19 17:37: Bedside Glucose (Misc Panel) 189H CBC/BMP Laboratory Tests 07/30/19 15:25 FSBS Laboratory Tests Test 07/30/19 17:37 Range/Units Bedside Glucose (Misc Panel) 189 83-110 MG/DL Microbiology Microbiology 07/30/19 Urine Culture, Received Pending 07/30/19 Blood Culture - Preliminary, Resulted No growth after 24 hours . All specim... 07/30/19 Blood Culture - Preliminary, Resulted No growth after 24 hours . All specim... Discharge Medications Scheduled Aspirin (Aspir 81) 81 Mg Tablet.dr, 81 MG PO DAILY, (Reported) Calcium Carbonate (Calcium) 600 Mg Tablet, 600 MG PO DAILY, (Reported) Diltiazem HCl (Cartia Xt) 300 Mg Cap.er.24h, 300 MG PO DAILY, (Reported) Donepezil HCl (Aricept) 5 Mg Tablet, 5 MG PO DAILY, (Reported) Enalapril Maleate (Enalapril Maleate) 20 Mg Tablet, 20 MG PO DAILY, (Reported) Ezetimibe (Zetia) 10 Mg Tablet, 10 MG PO DAILY, (Reported) Hydrochlorothiazide (Hydrochlorothiazide) 25 Mg Tablet, 25 MG PO DAILY, (Reported) Metoprolol Succinate (Metoprolol Succinate) 25 Mg Tab.er.24h, 25 MG PO DAILY, (Reported) Simvastatin (Simvastatin) 40 Mg Tablet, 40 MG PO QHS, (Reported) Allergies Coded Allergies: No Known Allergies (Unverified , 07/30/19) HANY BARRERA MD Jul 31, 2019 11:20
--- NOTE | 2019-08-03 14:12 | RO ---
DATE OF PROCEDURE: 07/30/2019 PREOPERATIVE DIAGNOSIS: Hypotension and need for vasopressor. POSTOPERATIVE DIAGNOSIS: Hypotension and need for vasopressor. PROCEDURE: Right femoral TLC SURGEON: Quintin Hall MD RETAIL SALES DIRECTOR: ANESTHESIA: PROCEDURE NOTE: Procedure was considered emergent. [place] procedure was followed. The right groin was prepped and draped in the sterile fate fashion. The ultrasound was used to identify the femoral vein. She was quite hypotensive at that time and it took a couple of tries to enter the femoral vein. Once the vein was entered the wire fed easily and the triple-lumen catheter was placed by modified Seldinger technique. Tolerated well. 1% local lidocaine was used as anesthetic. A CVP hookup was done which ensured location and showed the CVP to be 11.
== END 2019-07-30 20:11 | disposition expired | DRG 871 ==
LOC: M ED 06:38 → M ED INP 11:04 → M ICU 11:58
PROVIDERS: ADMIT Internal Medicine Nephrology; ATTEND Internal Medicine Nephrology
PROC: 06HT33Z Insertion of Infusion Device into Right Foot Vein, Percutaneous Approach (ICD-10-PCS; principal; 2019-07-30)
DX: A41.9 Sepsis, unspecified organism (principal); R65.21 Severe sepsis with septic shock; K72.00 Acute and subacute hepatic failure without coma; K55.059 Acute (reversible) ischemia of intestine, part and extent unspecified; N17.9 Acute kidney failure, unspecified; E87.2 Acidosis; N39.0 Urinary tract infection, site not specified; F03.90 Unspecified dementia, unspecified severity, without behavioral disturbance, psychotic disturbance, mood disturbance, and anxiety; E87.5 Hyperkalemia; Z79.82 Long term (current) use of aspirin; Z79.899 Other long term (current) drug therapy; K44.9 Diaphragmatic hernia without obstruction or gangrene; M54.5 Low back pain; Z66 Do not resuscitate; I95.9 Hypotension, unspecified